=== PATIENT | female | born 1970 | race Two or more races ===

== ENCOUNTER 2017-11-29 00:41 | Emergency (ER) | payer OTHER ==
[~2017-11-29] VITALS: Ht 162.6 cm; Wt 61.2 kg
[~2017-11-29 00:41] MED LIST: FLUO10CA26; SUMA25TA
[2017-11-29 01:51] LABS: APPEARANCE,URINE CLEAR (CLEAR); BILIRUBIN,URINE NEGATIVE (NEGATIVE); BLOOD, URINE 2+ Ery/uL (NEGATIVE); COLOR,URINE YELLOW (YELLOW); KETONES,URINE 2+ (NEGATIVE); LEUKOCYTE ESTERASE ,URINE NEGATIVE (NEGATIVE); NITRITE, URINE NEGATIVE (NEGATIVE); PROTEIN,URINE TRACE mg/dl (NEGATIVE); UGLUCOSE NEGATIVE (NEGATIVE); UROBILINOGEN,URINE 0.2 EU/dL (0.2)
[2017-11-29 01:57] LABS: BACTERIA,URINE None seen /HPF (None Seen); SQUAMOUS EPITHELIAL CELL,UR Few /HPF (None Seen)
[2017-11-29 02:19] VITALS: BP 144/79
== END 2017-11-29 02:21 | disposition home or self-care (01) ==
LOC: ER 00:43
DX: R30.0 Dysuria (principal); M54.12 Radiculopathy, cervical region; M62.838 Other muscle spasm; F32.9 Major depressive disorder, single episode, unspecified; F41.9 Anxiety disorder, unspecified; F17.200 Nicotine dependence, unspecified, uncomplicated; G43.909 Migraine, unspecified, not intractable, without status migrainosus
CPT/HCPCS: 81001; 99283; A4606; Z7610; 81000-TC

== ENCOUNTER 2019-02-02 01:13 | Emergency (ER) | payer OTHER ==
[~2019-02-02] VITALS: Ht 162.6 cm; Wt 67.1 kg
--- NOTE | 2019-02-02 01:25 | NUR ---
PT BIBSELF C/O CP RADIATING DOWN L ARM AND HIGH BP SINCE THIS AFTERNOON. DENIES SOB. NO HX OF HBP, PATIENT STATES TOOK SOME OF HER MOTHERS BP MED. PT AOX4. NAD NOTED. RESP EVEN AND UNLABORED. PT ON MONITOR IN BED 9. WILL CONTINUE TO MONITOR.
--- NOTE | 2019-02-02 01:34 | NUR ---
TECH AT BEDSIDE FOR EKG
--- NOTE | 2019-02-02 01:47 | NUR ---
BLOOD DRAWN AND GIVEN TO LAB
[2019-02-02 01:50] LABS: BASOPHILS # (AUTO) 0.1 /CMM (0.0-0.2); BASOPHILS % (AUTO) 0.7 % (0.0-2.0); EOSINOPHILS % (AUTO) 5.2 % (0.0-6.0); HEMATOCRIT 41 % (33-45); LYMPHOCYTES # (AUTO) 2.1 /CMM (0.8-4.8); LYMPHOCYTES % (AUTO) 26.1 % (20.0-44.0); MEAN CORPUSCULAR HGB CONC 34 g/dl (31.0-36.0); MEAN CORPUSCULAR VOLUME 95 fL (82-100); MONOCYTES # (AUTO) 0.6 /CMM (0.1-1.30); MONOCYTES % (AUTO) 7.5 % (2.0-12.0); NEUTROPHILS % (AUTO) 60.5 % (43.0-81.0); PLATELET COUNT (AUTO) 236 /CMM (150-450); RED BLOOD CELL COUNT(AUTO) 4.33 MIL/uL (4.0-5.2); WHITE BLOOD COUNT (AUTO) 8.2 K/uL (4.3-11.0)
[2019-02-02 01:58] LABS: CALCIUM, SERUM 9.4 mg/dL (8.5-10.1); CARBON DIOXIDE 31 mmol/L (21-32); CHLORIDE 105 mmol/L (98-107); CREATININE 0.8 mg/dL (0.6-1.3); GLUCOSE 108 mg/dL (74-106); POTASSIUM 3.4 mmol/L (3.5-5.1); SODIUM SERUM 143 mmol/L (136-145); UREA NITROGEN, BLOOD 14 mg/dL (7-18)
[2019-02-02] MEDS ORDERED: ASPIRIN 325 MG TABLET ONE (02:18)
[2019-02-02] MEDS ORDERED: LORAZEPAM INJ 2 MG/ML VIAL ONE (02:19)
[2019-02-02] MEDS ORDERED: ASPIRIN EC 325 MG TABLET.DR PO ONE (02:30)
[2019-02-02] MEDS ORDERED: LORAZEPAM INJ 2 MG/ML VIAL IV ONE (02:30)
--- NOTE | 2019-02-02 03:40 | NUR ---
Patient is resting comfortably in bed with eyes closed. Easily aroused. VSS.
[2019-02-02 04:04] VITALS: BP 128/82
--- NOTE | 2019-02-02 04:04 | NUR ---
Patient discharged to home in stable condition. Written and verbal after care instructions given. Patient verbalizes understanding of instruction. IV removed. Catheter intact and site benign. Pressure and 4x4 applied to site. No bleeding noted. Pt ambulatory with a steady gait
== END 2019-02-02 04:05 | disposition home or self-care (01) ==
LOC: ER 01:14
DX: I10 Essential (primary) hypertension (principal); R07.89 Other chest pain; F43.9 Reaction to severe stress, unspecified; F17.210 Nicotine dependence, cigarettes, uncomplicated; G43.909 Migraine, unspecified, not intractable, without status migrainosus; K58.9 Irritable bowel syndrome, unspecified; M54.9 Dorsalgia, unspecified; F32.9 Major depressive disorder, single episode, unspecified; F41.9 Anxiety disorder, unspecified; Z60.2 Problems related to living alone
CPT/HCPCS: 36415; 71045; 80048; 84484; 85025; 93005; 96374; 99284; J2060

== ENCOUNTER 2022-03-01 12:41 | Emergency (ER) | payer OTHER ==
[~2022-03-01] VITALS: Ht 162.6 cm; Wt 59.0 kg
--- NOTE | 2022-03-01 12:55 | NUR ---
BIB family c/o panic attack x 6 days, patient is taking xanax and abilify to no relief. AMBULATORY, AAOX4, CALM IN NATURE. PLACED ON BED
--- NOTE | 2022-03-01 13:00 | NUR ---
AT BED SIDE
[2022-03-01] MEDS ORDERED: LORAZEPAM 1 MG TABLET PO ONE (13:30)
--- NOTE | 2022-03-01 13:32 | NUR ---
CALLED ETHEL HEATH.
[2022-03-01] MEDS ORDERED: LORAZEPAM 1 MG TABLET ONE (13:48)
[2022-03-01] MEDS ORDERED: OLANZAPINE 5 MG TABLET ONE (13:49)
--- NOTE | 2022-03-01 13:53 | NUR ---
Note: SW was called to see pt. regarding anxiety. Pt. is a 51-year-old female that presents in the ER for panic attacks. Per pt., she has been having anxiety for 6 days straight. Pt. has a psychiatrist and takes medications but stated that it is not helping. suggested that pt. looks for a new psychiatrist if her medications are not working. Pt. refuses to answer any further questions. Pt. stated that she does not need a social work case manager. SW provided pt. with outpatient services if she ever wants to change her psychiatrist. Pt. stated that she just wants medicine to help with her panic attacks so she can leave hospital. Resources provided: Counseling--Outpatient [facility] [address] [place] [address] [place] [address] (Specializes in in-depth psychotherapy for emotional distress: anxiety, depression, interpersonal conflicts, life transitions, childhood abuse) [facility] [address] [place] [address] (Assist with solving problem marital difficulties, separation & divorce, aging parents, & grief, chronic & terminal illness) [facility] [address] [place] [address] (Deal with loss & grief, anxiety, marital difficulties) [facility] [address], [address] [place] [address] (Provide in-home mental services to people who are incapable of leaving their homes) [facility] [address] [place] [address] [facility] [address] [place] [address] PS[facility]ATRIC OUTPATIENT SERVICES [facility] Partial Hospitalization and Intensive Outpatient Program (Managed Care and [place] Only)[id number] [facility] [phone] [facility] Partial Hospitalization and Out[facility] [id number] [facility] [place], [place] [phone] [facility] [place] [id number] [place] [phone] [facility] Partial Hospitalization and Outpatient [id number] [facility] HospitalChris [place], [phone]
[2022-03-01] MEDS ORDERED: OLANZAPINE 5 MG TABLET PO ONE (14:00)
--- NOTE | 2022-03-01 14:10 | NUR ---
Patient discharged to home in stable condition. Written and verbal after care instructions given. Patient verbalizes understanding of instruction.
[2022-03-01 14:21] VITALS: BP 135/95
== END 2022-03-01 14:10 | disposition home or self-care (01) ==
LOC: ER 12:49
DX: F41.0 Panic disorder [episodic paroxysmal anxiety] (principal); G43.909 Migraine, unspecified, not intractable, without status migrainosus; F32.A Depression, unspecified; F41.9 Anxiety disorder, unspecified; F17.200 Nicotine dependence, unspecified, uncomplicated; Z87.19 Personal history of other diseases of the digestive system; Z60.2 Problems related to living alone; Z79.899 Other long term (current) drug therapy